=== PATIENT | female | born 1980 | race Caucasian/White ===

== ENCOUNTER 2016-11-23 14:01 | Emergency (ER) | payer OTHER ==
[2016-11-23 14:14] VITALS: RESP 18; TEMP 97.7
--- NOTE | 2016-11-23 15:45 | ED ---
General Adult HPI - General Chief complaint: Skin/Abscess/Foreign Body Stated complaint: insect bite on back Time Seen by Provider: 11/23/16 15:33 Source: patient, RN notes reviewed Mode of arrival: ambulatory Limitations: no limitations - History of Present Illness Initial comments: This is a 36 of female presents with an area of tenderness and to the back. Patient states she noticed this about 2 days ago at work. Patient denies any drainage from the area. Patient states the pain is worse when clothing rubs over the tender area. Patient denies any fever/chills, nausea/vomiting/ diarrhea. Patient denies any IV drug use, states she does smoke marijuana. Patient denies any recent shortness breath, chest pain, abdominal pain, back pain, numbness, tingling, hematuria, headache, or visual changes, or any other complaints. - Related Data Previous Rx's Medication Instructions Recorded Cephalexin [Keflex] 500 mg PO Q12HR 5 Days 11/23/16 Allergies Allergy/AdvReac Type Severity Reaction Status Date / Time kiwi Allergy Unknown Verified 11/23/16 14:14 Review of Systems ROS Statement: Those systems with pertinent positive or pertinent negative responses have been documented in the HPI. ROS Other: All systems not noted in ROS Statement are negative. Past Medical History Past Medical History: No Reported History History of Any Multi-Drug Resistant Organisms: None Reported Past Surgical History: Section, Orthopedic Surgery Past Psychological History: Anxiety Smoking Status: Current every day smoker Past Alcohol Use History: None Reported Past Drug Use History: Marijuana General Exam - General Exam Comments Initial Comments: General: The patient is awake and alert, in no distress, and does not appear acutely ill. Neck: The neck is supple, there is no tenderness or JVD. Cardiovascular: There is a regular rate and rhythm. No murmur, rub or gallop is appreciated. Respiratory: Lungs are clear to auscultation, respirations are non-labored, breath sounds are equal. No wheezes, stridor, rales, or rhonchi. Musculoskeletal: Full range of motion, strength 5/5 and Sensation intact. Radial pulses 2+ bilaterally. Neurological: A&O x 3. CN II-XII intact, There are no obvious motor or sensory deficits. Coordination appears grossly intact. Speech is normal. Skin: There is an approximately 1 cm area of erythema and very mild swelling to the mid back. There is no drainage from this area. No significant induration. The area is tender to palpation. Skin is warm and dry and no rashes are noted. Psychiatric: Normal mood and affect. Limitations: no limitations Course Vital Signs 11/23/16 14:09 Temperature 97.7 F Pulse Rate 74 Respiratory 18 Rate Blood Pressure 103/50 O2 Sat by Pulse 100 Oximetry Medical Decision Making - Medical Decision Making This is a 36-year-old female presents with an area of tenderness and erythema to the back. On physical exam There is an approximately 1 cm area of erythema and very mild swelling to the mid back. There is no drainage from this area. No significant induration. The area is tender to palpation. Skin is warm and dry and no rashes are noted. Discussed that patient was on a course of antibiotics. I discussed continued use of Aleve and Tylenol [id number] for pain. I discussed using warm compresses, hot showers and hot soaks. Discussed that this could be to start of an abscess, is no need for I&D today. I discussed return parameters. I discussed close follow-up with the patient's primary care physician. Patient will be referred to PCP today. I discussed the patient return to the [facility] for any worsening symptoms or for any further concerns. Patient was receptive to this plan and patient will be discharged home. Disposition Clinical Impression: Abscess Disposition: HOME SELF-CARE Condition: Good Instructions: Abscess (ED) Additional Instructions: Please finish entire course of antibiotics. Please use warm compresses to the area, hot showers or hot soaks. Continue Tylenol and/or Aleve [id number] as needed for pain. Please follow-up with her primary care physician in one to 2 days or return to the ED for any worsening symptoms or for any further concerns. Prescriptions: Cephalexin [Keflex] 500 mg PO Q12HR 5 Days Referrals: None,Stated [Primary Care Provider] - 1-2 days Faith Ledesma MD [STAFF PHYSICIAN] - 1-2 days Time of Disposition: 15:49
[2016-11-23 15:58] VITALS: BP 105/50; PULSE 72
== END 2016-11-23 15:56 | disposition home or self-care (01) ==
LOC: EC 14:01
DX: L02.212 Cutaneous abscess of back [any part, except buttock and flank] (principal); F17.200 Nicotine dependence, unspecified, uncomplicated
CPT/HCPCS: 99282

== ENCOUNTER 2017-01-06 08:37 | Emergency (ER) | payer OTHER ==
[2017-01-06] MEDS ORDERED: ASPIRIN 81 MG CHEW PO STA (09:41)
--- NOTE | 2017-01-06 09:45 | ED ---
Chest Pain HPI - General Chief Complaint: Chest Pain Stated Complaint: chest pain Time Seen by Provider: 01/06/17 09:26 Source: patient, RN notes reviewed Mode of arrival: wheelchair Limitations: no limitations - History of Present Illness Initial Comments: Patient is a 36-year-old female presents to the emergency room for evaluation of chest pain. Patient states pain began last night. Patient states the pain is on the left side of her chest. Patient states the pain feels like a tight/ burning pain. Patient states the pain is not going away. Patient states she took Aleve with no relief of symptoms. Patient denies shortness of breath. Patient states the pain is worse when she takes a deep breath. Patient does admit that she smokes a half pack per day. Patient denies any history of chest pain. Patient denies any significant past medical history. Patient denies any family history of cardiac issues. Patient denies headache or dizziness. Patient states the pain does make her nauseous. Patient also states that she's been very stressed with personal life. Patient is not sure if the chest pain is related to anxiety. Patient denies recent heavy lifting or trauma to her chest. Patient states the pain is not worse when pressing over the area. Patient denies fevers or chills. Patient denies headache. Patient denies abdominal pain. - Related Data Home Medications Medication Instructions Recorded Confirmed Pnv with Ca,No.72/Iron/FA 1 tab PO HS 01/06/17 01/06/17 [ Plus Tablet] Previous Rx's Medication Instructions Recorded Ibuprofen [Motrin] 600 mg PO Q6HR PRN #20 tab 01/06/17 Allergies Allergy/AdvReac Type Severity Reaction Status Date / Time kiwi Allergy Unknown Verified 01/06/17 09:44 Review of Systems ROS Statement: Those systems with pertinent positive or pertinent negative responses have been documented in the HPI. ROS Other: All systems not noted in ROS Statement are negative. EKG Findings - EKG Comments: EKG Findings:: Normal sinus rhythm, ventricular rate 59 bpm, [place] interval 134 ms , QRS duration 86 ms, QT/QTC 372/398 ms Past Medical History Past Medical History: No Reported History History of Any Multi-Drug Resistant Organisms: None Reported Past Surgical History: Section, Orthopedic Surgery Past Psychological History: Anxiety Smoking Status: Current every day smoker Past Alcohol Use History: None Reported Past Drug Use History: Marijuana General Exam - General Exam Comments Initial Comments: Sitting in exam room in no acute distress. Limitations: no limitations General appearance: alert, in no apparent distress Head exam: Present: atraumatic, normocephalic, normal inspection Eye exam: Present: normal appearance ENT exam: Present: normal exam Neck exam: Present: normal inspection Respiratory exam: Present: normal lung sounds bilaterally. Absent: respiratory distress Cardiovascular Exam: Present: regular rate, normal rhythm, normal heart sounds Extremities exam: Present: normal inspection Back exam: Present: normal inspection Neurological exam: Present: alert, oriented X3, CN II-XII intact, normal gait Psychiatric exam: Present: normal affect, normal mood Skin exam: Present: warm, dry, intact, normal color. Absent: rash Course Vital Signs 01/06/17 01/06/17 01/06/17 08:41 11:09 11:21 Temperature 97.8 F 98.8 F Pulse Rate 93 65 62 Respiratory 18 20 16 Rate Blood Pressure 123/56 101/55 104/64 O2 Sat by Pulse 100 99 100 Oximetry 01/06/17 12:35 Temperature 98.2 F Pulse Rate 80 Respiratory 18 Rate Blood Pressure 118/69 O2 Sat by Pulse 98 Oximetry Chest Pain MDM - MDM Patient is a 36 year old female presents to the emergency room for evaluation of chest pain. Labs show no concerning findings. EKG shows no concerning findings. Patient states pain is beginning to subside after medications given. Patient's symptoms also could be related to pleuritis or anxiety. Advised patient to return for any worsening symptoms. Advised patient to follow-up with her primary care provider for further evaluation. Patient states she understands everything that was discussed with her. Case discussed with Dr. Hoover. Disposition Clinical Impression: Chest pain Disposition: HOME SELF-CARE Condition: Good Instructions: Chest Pain (ED), Pleurisy (ED) Additional Instructions: Take ibuprofen as needed for pain. Please follow up with primary care provider in 1-2 days. If any new symptom arises or symptoms worsen, return to ER as soon as possible. Prescriptions: Ibuprofen [Motrin] 600 mg PO Q6HR PRN #20 tab PRN Reason: Pain Referrals: Kali Carter MD [REFERRING] - 1-2 days Time of Disposition: 11:43
[2017-01-06 10:01] LABS: Basophils # (A) 0.1 k/uL (0-0.2); Basophils % (A) 1 %; CH 32.1; CHCM 33.3; Eosinophils # (A) 0.2 k/uL (0-0.7); Eosinophils % (A) 3 %; HDW 2.29; HGB 13.1 gm/dL (11.4-16.0); Luc # (Auto) 0.17; Luc % (Auto) 2; Lymphocytes # (A) 1.8 k/uL (1.0-4.8); Lymphocytes % (A) 24 %; MCH 31.8 pg (25.0-35.0); MCHC 32.8 g/dL (31.0-37.0); MCV 96.9 fL (80.0-100.0); Mean Platelet Volume 8.5; Monocytes # (A) 0.4 k/uL (0-1.0); Monocytes % (A) 5 %; Neutrophils # (A) 4.7 k/uL (1.3-7.7); Neutrophils % (A) 64 %; RBC 4.13 m/uL (3.80-5.40); WBC 7.4 k/uL (3.8-10.6); WBC (Perox) 7.18
--- NOTE | 2017-01-06 10:09 | XR ---
EXAMINATION TYPE: XR chest 2V DATE OF EXAM: 01/06/2017 10:04 AM COMPARISON: NONE HISTORY: Chest pain TECHNIQUE: Frontal and lateral views of the chest are obtained. FINDINGS: There is no focal air space opacity, pleural effusion, or pneumothorax seen. The cardiac silhouette size is within normal limits. The patient is rotated. There are overlying cardiac leads. The osseous structures are intact. IMPRESSION: No acute cardiopulmonary process.
[2017-01-06 10:11] LABS: Glucose 73 mg/dL (74-99); Total Protein 5.4 g/dL (6.3-8.2)
[2017-01-06 10:12] LABS: ALT 30 U/L (9-52); AST 28 U/L (14-36); Alkaline Phosphatase 33 U/L (38-126); Anion Gap 7 mmol/L; Blood Urea Nitrogen 12 mg/dL (7-17); Calcium 8.8 mg/dL (8.4-10.2); Carbon Dioxide 25 mmol/L (22-30); Chloride 108 mmol/L (98-107); Magnesium 1.9 mg/dL (1.6-2.3); Non-African American GFR(MDRD) >60 (>60 ml/min/1.73 sqM); Potassium 4.1 mmol/L (3.5-5.1); Sodium 140 mmol/L (137-145); Total Bilirubin 0.3 mg/dL (0.2-1.3)
[2017-01-06 10:25] LABS: Partial Thromboplastin Time 21.2 sec (22.0-30.0); Prothrombin Time 10.3 sec (9.0-12.0)
[2017-01-06 10:27] LABS: Creatine Kinase 121 U/L (30-135)
[2017-01-06 10:39] LABS: Creatine Kinase MB 2.4 ng/mL (0.0-2.4); Troponin I <0.012 ng/mL (0.000-0.034)
[2017-01-06] MEDS ORDERED: KETOROLAC 30 MG/ML 1 ML VIAL IVP STA (10:54)
[2017-01-06] MEDS ORDERED: LORazepam 2 MG/ML SYRINGE IV STA (11:42)
[2017-01-06 12:36] VITALS: BP 118/69; PULSE 80; RESP 18; TEMP 98.2
== END 2017-01-06 12:35 | disposition home or self-care (01) ==
LOC: EC 08:37
DX: R07.9 Chest pain, unspecified (principal); R11.0 Nausea; F17.200 Nicotine dependence, unspecified, uncomplicated; Z79.899 Other long term (current) drug therapy; Z91.018 Allergy to other foods
CPT/HCPCS: 99285 ×2; 96374 ×2; 96375 ×2; 36415; 93005; 80053; 82550; 82553; 83735; 84484; 85025; 85610; 85730; 71020; J2060; J1885

== ENCOUNTER 2017-01-08 10:33 | Emergency (ER) | payer OTHER ==
[2017-01-08] MEDS ORDERED: HYDROcodone/APAP 5-325MG 1 EACH TAB PO STA (12:29)
--- NOTE | 2017-01-08 12:36 | ED ---
General Adult HPI - General Chief complaint: Shortness of Breath Stated complaint: ESE Time Seen by Provider: 01/08/17 12:19 Source: patient, RN notes reviewed, old records reviewed Mode of arrival: ambulatory Limitations: no limitations - History of Present Illness Initial comments: Chief complaint history of present illness this is a 36-year-old female with a chief complaint of anterior chest wall pain is worse with deep breathing palpation and twisting her upper torso. This been ongoing for several days. Patient was seen emergency room several days ago chest x-ray at that time was negative per Dr. Griggs. EKG was normal and I reviewed that. Patient denies any direct trauma to her chest. She is a smoker and again encouraged to stop. Patient reports that the pain is worse today than it was 2 days ago - Related Data Home Medications Medication Instructions Recorded Confirmed Ibuprofen [Motrin] 600 mg PO Q6HR PRN 01/08/17 01/08/17 Multivitamins, Thera [Multivitamin 1 tab PO DAILY 01/08/17 01/08/17 (formulary)] Previous Rx's Medication Instructions Recorded Hydrocodone/Acetaminophen [[place] 1 each PO Q6HR PRN #20 tab 01/08/17 5-325] methylPREDNISolone Dose Pack 4 mg PO DIRECTED #21 package 01/08/17 [Medrol Dose Pack] Allergies Allergy/AdvReac Type Severity Reaction Status Date / Time kiwi Allergy Unknown Verified 01/06/17 09:44 Review of Systems ROS Statement: Those systems with pertinent positive or pertinent negative responses have been documented in the HPI. Review of systems no visual acuity changes no headache no stiff neck she has anterior chest wall pain that increases with twisting turning bending deep breathing and palpation of anterior chest wall. No nausea no vomiting. No rash to her chest. Early shingles was discussed. No abdominal pain no back pain. No nausea vomiting no diarrhea. No neuro deficits. All systems are reviewed. Past medical problems significant for pleurisy diagnosed 3 days ago. Negative chest x-ray at that time a normal EKG at that time. The patient was placed on ibuprofen. Surgeries include left wrist, left knee and 2 C-sections. Patient wears no chance been now she had negative test 3 days ago. Plus she says she is not sexually active since since August. The patient's family history significant for mother had cervical cancer. Grandmother had diabetes. Patient has ALLERGIES to kiwi fruit. She does smoke strongly encouraged to stop. Denies alcohol use. ROS Other: All systems not noted in ROS Statement are negative. Past Medical History Past Medical History: No Reported History History of Any Multi-Drug Resistant Organisms: None Reported Past Surgical History: Section, Orthopedic Surgery Past Psychological History: Anxiety Smoking Status: Current every day smoker Past Alcohol Use History: None Reported Past Drug Use History: Marijuana General Exam - General Exam Comments Initial Comments: General: The patient is awake and alert, complaining of anterior chest wall pain, appears uncomfortable. Vital signs show temperature 98.0 pulse 86 story rate 20 pulse ox 99% in room air blood pressure 109/57 Eye: Pupils are equal, round and reactive to light, extra-ocular movements are intact ; there is normal conjunctiva bilaterally. No signs of icterus. Ears, nose, mouth and throat: There are moist mucous membranes and no oral lesions. Neck: The neck is supple, there is no tenderness . Cardiovascular: There is a regular rate and rhythm. No murmur, rub or gallop is appreciated. Respiratory: Lungs are clear to auscultation, respirations are non-labored, breath sounds are equal. No wheezes, stridor, rales, or rhonchi. Pain to the anterior chest wall left side right side over the sternum. Increases with deep breathing bending twisting turning and palpation. Chest pain can be slightly relieved with pressure on the anterior chest wall while breathing. Recently diagnosed with pleurisy. Gastrointestinal: Soft, non-distended, non-tender abdomen without masses or organomegaly noted. There is no rebound or guarding present. No CVA tenderness. Bowel sounds are unremarkable. Back: There is no tenderness to palpation in the midline. There is no obvious deformity. No rashes noted. Musculoskeletal: Normal ROM, no tenderness, There is no pedal edema. There is no calf tenderness or swelling. Sensation intact. Pulses equal bilaterally 2+. Neurological: No complaint of any weakness no evidence of any focal or lateralizing findings. Skin: Skin is warm and dry and no rashes or lesions are noted. Early shingles was discussed. Patient will watch for any changes. Psychiatric: Not complaining of any problems with anxiety or depression at this time. Does have a past history of anxiety no Limitations: no limitations Course Vital Signs 01/08/17 01/08/17 01/08/17 10:57 12:36 12:40 Temperature 98 F Pulse Rate 86 61 Respiratory 20 15 18 Rate Blood Pressure 109/57 103/68 O2 Sat by Pulse 99 100 Oximetry 01/08/17 14:45 Temperature 99.4 F Pulse Rate 68 Respiratory 14 Rate Blood Pressure 106/57 O2 Sat by Pulse 100 Oximetry EKG Findings - EKG Comments: EKG Findings:: EKG was done and reviewed at 1234 showing normal sinus rhythm no acute ST elevation no ectopy no ischemic changes. Rate 72. Was 154 QRS [address] Lozano this EKG was compared to one done several days ago on January 06 and he appeared to be the same. Medical Decision Making - Medical Decision Making Medical decision making; patient's white count is only 6.1 hemoglobin 13 hematocrit of 39 with a potassium 4.2. D-dimer normal at 0.44. The patient's BUN is 5 creatinine 0.74 the GFR greater than 60, glucose 80. Troponin less than 0.012. Chest x-ray was done and reviewed by radiologist's final impression is no acute cardiopulmonary process. As read by Dr. Griggs Patient reports feeling better after the IV Toradol. But still with a discomfort with palpation. She'll be told to continue with ibuprofen child be placed on a Medrol Dosepak and a short course of analgesics. Advised to follow- up with her family physician return emergency room as needed - Lab Data Result diagrams: 01/08/17 12:48 01/08/17 12:48 Lab Results 01/08/17 01/08/17 01/08/17 Range/Units 12:48 12:48 12:48 WBC 6.1 (3.8-10.6) k/uL RBC 4.03 (3.80-5.40) m/uL Hgb 13.3 (11.4-16.0) gm/dL Hct 39.2 (34.0-46.0) % MCV 97.1 (80.0-100.0) fL MCH 32.9 (25.0-35.0) pg MCHC 33.8 (31.0-37.0) g/dL RDW 12.8 (11.5-15.5) % Plt Count 169 (150-450) k/uL Neutrophils % 67 % Lymphocytes % 23 % Monocytes % 5 % Eosinophils % 3 % Basophils % 1 % Neutrophils # 4.1 (1.3-7.7) k/uL Lymphocytes # 1.4 (1.0-4.8) k/uL Monocytes # 0.3 (0-1.0) k/uL Eosinophils # 0.2 (0-0.7) k/uL Basophils # 0.0 (0-0.2) k/uL D-Dimer (<0.60) mg/L FEU Sodium 139 (137-145) mmol/L Potassium 4.2 (3.5-5.1) mmol/L Chloride 110 H (98-107) mmol/L Carbon Dioxide 24 (22-30) mmol/L Anion Gap 5 mmol/L BUN 5 L (7-17) mg/dL Creatinine 0.74 (0.52-1.04) mg/dL Est GFR (MDRD) Af Amer >60 (>60 ml/min/1.73 sqM) Est GFR (MDRD) Non-Af >60 (>60 ml/min/1.73 sqM) Glucose 80 (74-99) mg/dL Calcium 8.8 (8.4-10.2) mg/dL Total Bilirubin 0.5 (0.2-1.3) mg/dL AST 18 (14-36) U/L ALT 27 (9-52) U/L Alkaline Phosphatase 35 L (38-126) U/L Total Creatine Kinase 51 (30-135) U/L CK-MB (CK-2) 0.7 (0.0-2.4) ng/mL CK-MB (CK-2) Rel Index 1.4 Troponin I <0.012 (0.000-0.034) ng/mL Total Protein 5.9 L (6.3-8.2) g/dL Albumin 3.5 (3.5-5.0) g/dL 01/08/17 Range/Units 12:48 WBC (3.8-10.6) k/uL RBC (3.80-5.40) m/uL Hgb (11.4-16.0) gm/dL Hct (34.0-46.0) % MCV (80.0-100.0) fL MCH (25.0-35.0) pg MCHC (31.0-37.0) g/dL RDW (11.5-15.5) % Plt Count (150-450) k/uL Neutrophils % % Lymphocytes % % Monocytes % % Eosinophils % % Basophils % % Neutrophils # (1.3-7.7) k/uL Lymphocytes # (1.0-4.8) k/uL Monocytes # (0-1.0) k/uL Eosinophils # (0-0.7) k/uL Basophils # (0-0.2) k/uL D-Dimer 0.44 (<0.60) mg/L FEU Sodium (137-145) mmol/L Potassium (3.5-5.1) mmol/L Chloride (98-107) mmol/L Carbon Dioxide (22-30) mmol/L Anion Gap mmol/L BUN (7-17) mg/dL Creatinine (0.52-1.04) mg/dL Est GFR (MDRD) Af Amer (>60 ml/min/1.73 sqM) Est GFR (MDRD) Non-Af (>60 ml/min/1.73 sqM) Glucose (74-99) mg/dL Calcium (8.4-10.2) mg/dL Total Bilirubin (0.2-1.3) mg/dL AST (14-36) U/L ALT (9-52) U/L Alkaline Phosphatase (38-126) U/L Total Creatine Kinase (30-135) U/L CK-MB (CK-2) (0.0-2.4) ng/mL CK-MB (CK-2) Rel Index Troponin I (0.000-0.034) ng/mL Total Protein (6.3-8.2) g/dL Albumin (3.5-5.0) g/dL Disposition Clinical Impression: Costochondritis, acute, Pleurisy Disposition: HOME SELF-CARE Condition: Stable Instructions: Costochondritis (ED) Prescriptions: Hydrocodone/Acetaminophen [[place] 5-325] 1 each PO Q6HR PRN #20 tab PRN Reason: Pain methylPREDNISolone Dose Pack [Medrol Dose Pack] 4 mg PO DIRECTED #21 package Time of Disposition: 15:31
[2017-01-08] MEDS ORDERED: KETOROLAC 30 MG/ML 1 ML VIAL IVP STA (12:40)
[2017-01-08 13:07] LABS: Basophils % (A) 1 %; CH 32.4; CHCM 33.5; Eosinophils # (A) 0.2 k/uL (0-0.7); Eosinophils % (A) 3 %; HCT 39.2 % (34.0-46.0); HDW 2.25; HGB 13.3 gm/dL (11.4-16.0); Luc # (Auto) 0.14; Luc % (Auto) 2; Lymphocytes # (A) 1.4 k/uL (1.0-4.8); Lymphocytes % (A) 23 %; MCH 32.9 pg (25.0-35.0); MCHC 33.8 g/dL (31.0-37.0); MCV 97.1 fL (80.0-100.0); Mean Platelet Volume 8.2; Monocytes # (A) 0.3 k/uL (0-1.0); Monocytes % (A) 5 %; Neutrophils # (A) 4.1 k/uL (1.3-7.7); Neutrophils % (A) 67 %; RBC 4.03 m/uL (3.80-5.40); RDW 12.8 % (11.5-15.5); WBC 6.1 k/uL (3.8-10.6); WBC (Perox) 6.34
[2017-01-08 13:14] LABS: ALT 27 U/L (9-52); AST 18 U/L (14-36); Alkaline Phosphatase 35 U/L (38-126); Anion Gap 5 mmol/L; Blood Urea Nitrogen 5 mg/dL (7-17); Calcium 8.8 mg/dL (8.4-10.2); Carbon Dioxide 24 mmol/L (22-30); Chloride 110 mmol/L (98-107); Glucose 80 mg/dL (74-99); Non-African American GFR(MDRD) >60 (>60 ml/min/1.73 sqM); Potassium 4.2 mmol/L (3.5-5.1); Sodium 139 mmol/L (137-145); Total Bilirubin 0.5 mg/dL (0.2-1.3); Total Protein 5.9 g/dL (6.3-8.2)
[2017-01-08 13:38] LABS: Creatine Kinase 51 U/L (30-135)
[2017-01-08 13:50] LABS: Creatine Kinase MB 0.7 ng/mL (0.0-2.4); Troponin I <0.012 ng/mL (0.000-0.034)
--- NOTE | 2017-01-08 13:51 | XR ---
EXAMINATION TYPE: XR chest 2V DATE OF EXAM: 01/08/2017 1:36 PM COMPARISON: Prior chest x-ray 06 January 2017 HISTORY: Worsening chest pain TECHNIQUE: Frontal and lateral views of the chest are obtained. FINDINGS: There is no focal air space opacity, pleural effusion, or pneumothorax seen. The cardiac silhouette size is within normal limits. There are overlying cardiac leads. There is a mild spinal c urvature. The osseous structures are intact. IMPRESSION: No acute cardiopulmonary process.
[2017-01-08 15:47] VITALS: BP 97/64; PULSE 64; RESP 18; TEMP 99.3
== END 2017-01-08 15:47 | disposition home or self-care (01) ==
LOC: EC 10:33
DX: M94.0 Chondrocostal junction syndrome [Tietze] (principal); R09.1 Pleurisy; F17.200 Nicotine dependence, unspecified, uncomplicated; Z91.018 Allergy to other foods
CPT/HCPCS: 99285 ×2; 96374 ×2; 36415; 93005; 85379; 80053; 82550; 82553; 84484; 85025; 71020; J1885

== ENCOUNTER 2017-01-14 15:20 | Observation (INO) | payer OTHER ==
[2017-01-14] MEDS ORDERED: ASPIRIN 81 MG CHEW PO STA (15:54)
[2017-01-14] MEDS ORDERED: KETOROLAC 30 MG/ML 1 ML VIAL IVP STA (15:54)
[2017-01-14] MEDS ORDERED: IPRATROPIUM-ALBUTEROL 3 ML NEB INHALATION STA (15:57)
[2017-01-14] MEDS ORDERED: RX INFO: IV CONTRAST WAS GIVEN 1 EACH MISC MISCELLANE PRN (15:57)
--- NOTE | 2017-01-14 16:09 | ED ---
Chest Pain HPI - General Chief Complaint: Chest Pain Stated Complaint: Chest Pain Time Seen by Provider: 01/14/17 15:31 Source: patient Mode of arrival: wheelchair Limitations: no limitations - History of Present Illness Initial Comments: The patient is a 36-year-old female who presents to the ED with a chief complaint of chest pain. Patient states that the pain is located in the substernal region and radiates to the left upper chest. Patient states that the pain has been present over the course of the last week. She states that the pain is pleuritic in nature, worse when she takes a deep breath. Patient states the pain has grown worse over the course of the past week. She states that she becomes easily winded when ambulating secondary to her pain. She states that she's come to the ED several times over the course of this past week and has received x-rays and EKGs that were all read as normal. Reviewing the patient's chart, she also had a d-dimer that was noted to be normal. Patient was initially diagnosed with pleurisy and discharged with Motrin to use when necessary while at home. The patient was then reevaluated and discharged home with Irving and a Medrol Dosepak. The patient states that Irving takes the edge off the pain but that it has not resolved her discomfort. Patient denies any cardiac risk factors aside from cigarette smoking. Patient denies any family history of cardiac disease. Patient states that she takes no medications at home aside from a multivitamin with iron. HEART Score=2 (1 for suspicion, 0 for age, 1 for risk factors). Should be noted that the patient does state that she's lost her voice since that chest pain is grown worse. She denies any cough or nasal congestion. - Related Data Home Medications Medication Instructions Recorded Confirmed Ibuprofen [Motrin] 600 mg PO Q6HR PRN 01/08/17 01/14/17 Hydrocodone/Acetaminophen [Irving 1 tab PO Q6HR PRN 01/14/17 01/14/17 5-325] Multivitamin with Iron 1 tab PO DAILY 01/14/17 01/14/17 [Multivitamins with Iron] methylPREDNISolone Dose Pack See Taper PO DAILY 01/14/17 01/14/17 [Medrol Dose Pack] Allergies Allergy/AdvReac Type Severity Reaction Status Date / Time kiwi Allergy Anaphylaxis Verified 01/14/17 16:00 Review of Systems ROS Statement: Those systems with pertinent positive or pertinent negative responses have been documented in the HPI. ROS Other: All systems not noted in ROS Statement are negative. Constitutional: Denies: fever, chills, weakness Eyes: Denies: eye pain ENT: Denies: ear pain, throat pain Respiratory: Denies: cough, dyspnea, wheezes, hemoptysis Cardiovascular: Reports: chest pain, dyspnea on exertion. Denies: palpitations , orthopnea, edema, syncope, paroxysmal nocturnal dyspnea Endocrine: Reports: fatigue Gastrointestinal: Denies: abdominal pain, nausea, vomiting, diarrhea, constipation Genitourinary: Denies: urgency Musculoskeletal: Denies: back pain Skin: Denies: rash, lesions, change in color Neurological: Denies: headache, weakness, numbness Psychiatric: Denies: anxiety, depression EKG Findings - EKG Comments: EKG Findings:: EKG demonstrates normal sinus rhythm. There are no concerning ST or T-wave changes. The OR and QRS intervals are within normal limits. Past Medical History Past Medical History: No Reported History History of Any Multi-Drug Resistant Organisms: None Reported Past Surgical History: Section, Orthopedic Surgery Past Psychological History: Anxiety Smoking Status: Current every day smoker Past Alcohol Use History: None Reported Past Drug Use History: Marijuana General Exam Limitations: no limitations General appearance: alert, in no apparent distress Head exam: Present: atraumatic, normocephalic, normal inspection Eye exam: Present: normal appearance, PERRL, EOMI Pupils: Present: normal accommodation ENT exam: Present: normal exam, mucous membranes moist, other (slight erythema of the oropharynx. Hoarse voice noted) Neck exam: Present: normal inspection. Absent: tenderness, meningismus Respiratory exam: Present: normal lung sounds bilaterally, wheezes (trace wheezes bilaterally), other (patient seems to have difficulty taking deep breaths). Absent: respiratory distress, rales, rhonchi, stridor, chest wall tenderness Cardiovascular Exam: Present: regular rate, normal rhythm, other (Patient's pain is slightly reproducible on exam) GI/Abdominal exam: Present: soft. Absent: distended, tenderness, guarding, rebound Extremities exam: Present: normal inspection, normal capillary refill Neurological exam: Present: alert, altered, oriented X3 Psychiatric exam: Present: normal affect, normal mood Skin exam: Present: warm, dry, intact Course Vital Signs 01/14/17 01/14/17 01/14/17 15:25 16:28 16:37 Temperature 98.1 F Pulse Rate 89 84 86 Respiratory 18 Rate Blood Pressure 110/57 O2 Sat by Pulse 99 Oximetry Chest Pain MDM - MDM Patient is a 36-year-old female who presents to the ED with a chief complaint of chest pain. Patient states pain has been present over the course of the past week. Patient has been evaluated several times here in the ED. Initially diagnosed with pleurisy. Discharged home with NSAIDs for pain control; however , these were not effective. Patient returned to the ED and had additional evaluation including repeat chest x-ray and EKG. These were both noted to be normal. Patient a d-dimer that was negative at that point in time as well. As such, patient was discharged home with Irving and Medrol Dosepak. Patient states that she's been using these medications and that they take the edge off the pain that she is experiencing but do not resolve it. She notes that her pain has grown worse over the past week. Patient states that she smokes on a regular basis. She denies that she uses an inhaler. Denies cough, fevers, chills. However, does have a hoarse voice. Given that this is the patient's third visit to the ED, will check CT angiography of the chest to rule out possibility of PE or other intrathoracic pathology. EKG is normal sinus rhythm without any ischemic changes. Patient could be expressing pleurisy. Consider potential cardiac etiology as well, including pericarditis. 5:52 PM The patient states that her chest pain is not improved with Toradol. Updated patient that her CT PE study was normal. Troponin is within normal limits. EKG is NSR with no ST-T changes. 6:[address] Olga Hargrove, who accepts placement of patient into Observation to Dr. Tee. Disposition Clinical Impression: Chest pain Disposition: ADMITTED IP TO THIS [facility] Condition: Good Time of Disposition: 18:12 Decision to Admit Reason: Admit from EC Decision Date: 01/14/17 Decision Time: 18:12
[2017-01-14 16:11] LABS: Basophils % (A) 0 %; CHCM 33.6; Eosinophils % (A) 0 %; HCT 41.4 % (34.0-46.0); HDW 2.23; HGB 13.6 gm/dL (11.4-16.0); Luc # (Auto) 0.08; Luc % (Auto) 1; Lymphocytes # (A) 0.9 k/uL (1.0-4.8); Lymphocytes % (A) 12 %; MCH 31.6 pg (25.0-35.0); MCHC 32.9 g/dL (31.0-37.0); MCV 95.9 fL (80.0-100.0); Monocytes # (A) 0.2 k/uL (0-1.0); Monocytes % (A) 3 %; Neutrophils # (A) 6.1 k/uL (1.3-7.7); Neutrophils % (A) 84 %; RBC 4.31 m/uL (3.80-5.40); RDW 12.7 % (11.5-15.5); WBC 7.3 k/uL (3.8-10.6); WBC (Perox) 7.61
[2017-01-14 16:20] LABS: Partial Thromboplastin Time 24.1 sec (22.0-30.0); Prothrombin Time 10.3 sec (9.0-12.0)
[2017-01-14 16:21] LABS: Anion Gap 9 mmol/L; Blood Urea Nitrogen 12 mg/dL (7-17); Calcium 9.1 mg/dL (8.4-10.2); Carbon Dioxide 24 mmol/L (22-30); Chloride 107 mmol/L (98-107); Glucose 107 mg/dL (74-99); Magnesium 1.9 mg/dL (1.6-2.3); Non-African American GFR(MDRD) >60 (>60 ml/min/1.73 sqM); Potassium 4.1 mmol/L (3.5-5.1); Sodium 140 mmol/L (137-145)
--- NOTE | 2017-01-14 17:35 | CT ---
EXAMINATION TYPE: CT angio chest DATE OF EXAM: 01/14/2017 5:30 PM COMPARISON: NONE HISTORY: Mid Chest pain, Shortness of breath and hoarseness. CT DLP: 129.1 mGycm Automated exposure control for dose reduction was used. CONTRAST: CTA scan of the thorax is performed with IV Contrast, patient injected with 100 mL of Omnipaque 350, pulmonary embolism protocol. . FINDINGS: There are 3-D post processed images. The lungs are clear of infiltrate. There is no evidence of a pulmonary mass. Heart size is normal. Th ere is no pericardial effusion. There is no pleural effusion. I see no filling defects in the pulmona ry arteries. Thoracic aorta appears normal. There is no sign of aneurysm or dissection. There is no m ediastinal adenopathy. There are no hilar masses. The bony thorax appears intact. IMPRESSION: NORMAL CT ANGIOGRAM OF THE CHEST. NO EVIDENCE OF PULMONARY EMBOLISM.
[2017-01-14] MEDS ORDERED: ONDANSETRON 4 MG/2 ML VIAL IVP STA (17:51)
[2017-01-14] MEDS ORDERED: MORPHINE SULFATE 4 MG/ML SYRINGE IVP STA (17:51)
[2017-01-14] MEDS ORDERED: NALOXONE 0.4 MG/ML 1 ML VIAL IV PRN (18:13)
[2017-01-14] MEDS: MORPHINE SULFATE 4 MG/ML SYRINGE IV PRN (20:59)
[2017-01-14] MEDS: HYDROcodone/APAP 5-325MG 1 EACH TAB PO PRN (23:14)
[2017-01-15] MEDS: MORPHINE SULFATE 4 MG/ML SYRINGE IV PRN ×4 (00:47→20:08)
[2017-01-15] MEDS: HYDROcodone/APAP 5-325MG 1 EACH TAB PO PRN ×3 (03:43→13:47)
[2017-01-15 08:18] LABS: Basophils % (A) 0 %; CH 31.6; CHCM 32.8; Eosinophils # (A) 0.2 k/uL (0-0.7); Eosinophils % (A) 2 %; HCT 40.7 % (34.0-46.0); HDW 2.17; HGB 12.9 gm/dL (11.4-16.0); Luc # (Auto) 0.18; Luc % (Auto) 2; Lymphocytes # (A) 2.7 k/uL (1.0-4.8); Lymphocytes % (A) 35 %; MCH 30.6 pg (25.0-35.0); MCHC 31.6 g/dL (31.0-37.0); MCV 96.8 fL (80.0-100.0); Mean Platelet Volume 6.9; Monocytes # (A) 0.4 k/uL (0-1.0); Monocytes % (A) 6 %; Neutrophils # (A) 4.2 k/uL (1.3-7.7); Neutrophils % (A) 54 %; RBC 4.21 m/uL (3.80-5.40); RDW 12.7 % (11.5-15.5); WBC 7.7 k/uL (3.8-10.6); WBC (Perox) 7.93
[2017-01-15 08:39] LABS: Anion Gap 6 mmol/L; Blood Urea Nitrogen 13 mg/dL (7-17); Calcium 8.7 mg/dL (8.4-10.2); Carbon Dioxide 28 mmol/L (22-30); Chloride 106 mmol/L (98-107); Glucose 78 mg/dL (74-99); Magnesium 1.9 mg/dL (1.6-2.3); Non-African American GFR(MDRD) >60 (>60 ml/min/1.73 sqM); Potassium 4.3 mmol/L (3.5-5.1); Sodium 140 mmol/L (137-145)
--- NOTE | 2017-01-15 09:53 | P.CRDCN ---
History of Present Illness Consult date: 01/15/17 Chief complaint: Chest pain History of present illness: This is a pleasant 36-year-old female patient with history of smoking presented to the emergency room complaining of chest discomfort. The patient just was diagnosed with pleurisy and she was started on nonsteroidal anti-inflammatory medications recently. She came in back to the emergency room with a chest discomfort seems to be very pleuritic in nature. The EKG showed sinus rhythm without any significant ST or T-wave abnormalities. The cardiac enzymes were checked and came in to be unremarkable. The patient does not have any history of coronary artery disease or diabetes or hypertension or dyslipidemia. She does smoke about 3 cigarettes a day. She doesn't have any family history of premature coronary artery disease. As a mentioned earlier the patient was ruled out for acute coronary event. We get her up and around. Also I would obtain an echocardiogram was Doppler. If she is not having chest discomfort with exertion she might be able to be discharged home. Past Medical History Past Medical History: No Reported History Additional Past Medical History / Comment(s): MIGRAINES History of Any Multi-Drug Resistant Organisms: None Reported Past Surgical History: Section, Orthopedic Surgery Additional Past Surgical History / Comment(s): RT KNEE ARTHROSCOPY, 2 C- SECTIONS , LT WRIST CARPAL RUNNEL RELEASE Past Anesthesia/Blood Transfusion Reactions: Previous Problems w/ Anesthesia Additional Past Anesthesia/Blood Transfusion Reaction / Comment(s): "I NEEDED MORE SEDATION " Past Psychological History: Anxiety Additional Psychological History / Comment(s): PT LIVED IN [place] AND MOVED TO [place] IN SEP 2016 W/ MISTI. PT IS INDEPENDANT, WORKS FOR [employer] IN [place]. Smoking Status: Current every day smoker Past Alcohol Use History: None Reported Additional Past Alcohol Use History / Comment(s): STARTED SMOKING AT AGE 15 CURENTLY SMOKING 3-4 CIG PER DAY Past Drug Use History: Marijuana Additional Drug Use History / Comment(s): USED LAST THIS AM(01-14-17 - Past Family History Mother Family Medical History: Cancer Additional Family Medical History / Comment(s): OVARIAN CANCER GRANMOTHER HAD DM, HIGH BP. GRANDFATHER CANCER Father Family Medical History: No Reported History Additional Family Medical History / Comment(s): 5 RELATIVES ON FATHERS SIDE HAD LUPUS Brother(s) Family Medical History: Asthma Additional Family Medical History / Comment(s): MURMUR Medications and Allergies Home Medications Medication Instructions Recorded Confirmed Type Ibuprofen [Motrin] 600 mg PO Q6HR PRN 01/08/17 01/14/17 History Multivitamin with Iron 1 tab PO DAILY 01/14/17 01/14/17 History [Multivitamins with Iron] Allergies Allergy/AdvReac Type Severity Reaction Status Date / Time kiwi Allergy Anaphylaxis Verified 01/14/17 20:55 Physical Exam Vitals: Vital Signs Temp Pulse Pulse Resp BP BP Pulse Ox 01/15/17 07:41 98.2 F 64 15 87/48 98 01/15/17 04:00 98.0 F 59 L 16 82/51 97 01/14/17 23:45 16 01/14/17 23:44 98.1 F 64 16 99/55 97 01/14/17 20:00 16 01/14/17 19:44 98.4 F 66 16 104/53 98 01/14/17 18:32 70 16 114/65 100 Intake and Output 01/14/17 01/15/17 01/15/17 22:59 06:59 14:59 Other: # Voids 1 1 Weight 55.3 kg - Constitutional General appearance: no acute distress - Respiratory Respiratory: bilateral: CTA - Cardiovascular Rhythm: regular Heart sounds: normal: S1, S2 Results 01/15/17 07:52 01/15/17 07:50 Cardiac Enzymes 01/14/17 Range/Units 21:37 Troponin I <0.012 (0.000-0.034) ng/mL CBC 01/15/17 Range/Units 07:52 WBC 7.7 (3.8-10.6) k/uL RBC 4.21 (3.80-5.40) m/uL Hgb 12.9 (11.4-16.0) gm/dL Hct 40.7 (34.0-46.0) % Plt Count 200 (150-450) k/uL Comprehensive Metabolic Panel 01/15/17 Range/Units 07:50 Sodium 140 (137-145) mmol/L Potassium 4.3 (3.5-5.1) mmol/L Chloride 106 (98-107) mmol/L Carbon Dioxide 28 (22-30) mmol/L BUN 13 (7-17) mg/dL Creatinine 0.79 (0.52-1.04) mg/dL Glucose 78 (74-99) mg/dL Calcium 8.7 (8.4-10.2) mg/dL Current Medications Generic Name Dose Route Start Last Admin Trade Name Freq PRN Reason Stop Dose Admin Hydrocodone Bitart/Acetaminophen 1 each 01/14/17 18:13 01/15/17 08:54 [place] 5-325 PO 1 each Q4HR PRN Administration Moderate Pain Miscellaneous Information 1 each 01/14/17 15:57 01/14/17 17:30 Rx Info: Iv Contrast Was Given MISCELLANE 01/16/17 15:57 1 each DAILY PRN Administration Per Protocol Morphine Sulfate 4 mg 01/14/17 18:13 01/15/17 04:41 Morphine Sulfate (Inj) IV 4 mg Q4HR PRN Administration Severe Pain Naloxone HCl 0.2 mg 01/14/17 18:13 Narcan IV Q2M PRN Opioid Reversal Intake and Output 01/14/17 01/15/17 01/15/17 22:59 06:59 14:59 Other: # Voids 1 1 Weight 55.3 kg 01/15/17 07:52 01/15/17 07:50 Assessment and Plan Plan: Assessment Atypical chest discomfort Pleurisy Plan I will obtain an echocardiogram was Doppler Get the patient up and around and assess for chest pain Follow-up with the patient
[2017-01-15] MEDS: KETOROLAC 30 MG/ML 1 ML VIAL IVP PRN (17:39)
[2017-01-15] MEDS: MAG HYDROX/AL HYDROX/SIMETH 30 ML CUP PO SCH ×2 (17:40→20:08)
[2017-01-16] MEDS: MORPHINE SULFATE 4 MG/ML SYRINGE IV PRN ×3 (00:14→13:11)
[2017-01-16] MEDS: FAMOTIDINE 20 MG/2 ML VIAL IV SCH ×2 (00:17→08:09)
[2017-01-16] MEDS: KETOROLAC 30 MG/ML 1 ML VIAL IVP PRN ×2 (06:24→14:39)
--- NOTE | 2017-01-16 07:31 | ECHOF ---
Referral Reason:chest pain MEASUREMENTS -------- HEIGHT: 154.9 cm WEIGHT: 54.9 kg BP: 107/62 RVIDd: 2.8 cm (< 3.3) IVSd: 0.7 cm (0.6 - 1.1) LVIDd: 3.9 cm (3.9 - 5.3) LVPWd: 0.6 cm (0.6 - 1.1) IVSs: 0.9 cm LVIDs: 2.7 cm LVPWs: 1.4 cm LA Diam: 3.2 cm (2.7 - 3.8) LAESV Index (A-L): 15.21 ml/m Ao Diam: 2.4 cm (2.0 - 3.7) AV Cusp: 1.6 cm (1.5 - 2.6) LA Diam: 2.6 cm (2.7 - 3.8) MV EXCURSION: 14.881 mm (> 18.000) MV EF SLOPE: 151 mm/s (70 - 150) EPSS: 0.4 cm MV E Joni: 0.71 m/s MV DecT: 182 ms MV A Joni: 0.45 m/s MV E/A Ratio: 1.59 RAP: 5.00 mmHg RVSP: 25.82 mmHg FINDINGS -------- Sinus rhythm. This was a technically good study. Left ventricular wall thickness is normal. Overall left ventricular systolic function is normal with, an EF between 55 - 60 %. The right ventricle is normal in size. Normal LA size by volume 22+/-6 ml/m2. The right atrium is normal in size. The aortic valve is trileaflet and appears structurally normal. Mild mitral annular calcification present. There is trace mitral regurgitation. Mild tricuspid regurgitation present. Right ventricular systolic pressure is normal at < 35 mmHg. Trace/mild (physiologic) pulmonic regurgitation. The aortic root size is normal. Normal inferior vena cava with normal inspiratory collapse consistent with estimated right atrial pressure of 5 mmHg. There is no pericardial effusion. CONCLUSIONS -------- 1. Sinus rhythm. 2. There is trace mitral regurgitation. 3. Mild tricuspid regurgitation present. 4. Right ventricular systolic pressure is normal at < 35 mmHg. 5. Trace/mild (physiologic) pulmonic regurgitation. 6. The aortic root size is normal. 7. Normal inferior vena cava with normal inspiratory collapse consistent with estimated right atrial pressure of 5 mmHg. 8. There is no pericardial effusion. 9. This was a technically good study. 10. Left ventricular wall thickness is normal. 11. Overall left ventricular systolic function is normal with, an EF between 55 - 60 %. 12. The right ventricle is normal in size. 13. Normal LA size by volume 22+/-6 ml/m2. 14. The right atrium is normal in size. 15. The aortic valve is trileaflet and appears structurally normal. 16. Mild mitral annular calcification present. MEDICATION ADMINISTRATION PROFESSIONAL: Mike Browning RDCS
[2017-01-16] MEDS: MAG HYDROX/AL HYDROX/SIMETH 30 ML CUP PO SCH ×2 (08:09→13:11)
--- NOTE | 2017-01-16 10:40 | HP ---
DATE OF ADMISSION: 01/14/2017 CHIEF COMPLAINT: Chest pain. HISTORY OF PRESENT ILLNESS: Mariia Cobb is a 36-year-old female without significant past medical history except for anxiety, came to the hospital with complaints of chest pain, mainly on the left side, retrosternal, worsened with deep breathing and also pressure on the chest. The patient otherwise denied any fall. The patient initially presented to the ER on 01/08/2017. A CT angiogram of the chest was done and showed no pulmonary embolism. D-dimer was not elevated. The patient was initially seen in the ER and patient was given Motrin at home and discharged home with [place] and Medrol Dosepak. The patient otherwise was still having chest pain and requesting IV pain medications. The patient, however, denies any medical problems. The patient also states that she lost her voice since yesterday. Otherwise denied any cough or congestion. REVIEW OF SYSTEMS: CONSTITUTIONAL: No fever. No chills. RESPIRATORY: No cough or sputum production. The patient does have chest pain and short of breath with deep breathing. ABDOMEN: No nausea or vomiting, abdominal pain. GENITOURINARY: No complaints. PSYCHIATRIC: Anxious skin. SKIN: Negative. MUSCULOSKELETAL: Negative. All other 14-point review of systems negative except as above. PAST MEDICAL HISTORY: Anxiety. PAST SURGICAL HISTORY: , orthopedic surgery. SOCIAL HISTORY: The patient is a current every day smoker. Occasional marijuana use. Denied any drugs or IVDU. Denied any difficulty swallowing. HOME MEDICATIONS: 1. Motrin. 2. [place]. 3. Multivitamins. 4. Medrol Dosepak. ALLERGIES: KIWI. PHYSICAL EXAMINATION: A 36-year-old female lying in bed comfortably. Awake, alert, oriented, x3. Appears to be in mild distress due to pain. VITALS: Blood pressure is 196/64, pulse is 61, respirations 18, temperature afebrile, pulse ox 97% on room air. HEENT: Atraumatic, normocephalic. NECK: Supple, no JVD. CARDIOVASCULAR: No murmurs, no gallop. The patient does have chest wall pressure, worsened with deep palpation. LUNGS: Bilateral air entry is present. Diminished breath sounds basally. Nonlabored breathing. ABDOMEN: Soft, nontender, bowel sounds present. MAINTENANCE SUPERVISOR: Awake, alert, oriented x3. No focal deficits. EXTREMITIES: No edema. Pulses palpable bilaterally. PSYCHIATRIC: Cooperative. Anxious. LABORATORY DATA: WBC 7.7, hemoglobin 12.9, platelets 200, sodium 140, potassium 4.3, chloride 106, bicarbonate 28. BUN 13, creatinine 0.79, magnesium 1.9. Influenza A and B negative. Troponin x3 negative. NT-proBNP 186, d-dimer is 0.44. EKG normal sinus rhythm. IMPRESSION: Left-sided chest pain, mostly musculoskeletal and possible costochondritis. Rule out acute coronary syndrome. Continue with monitoring and ROSMERY. Will continue the pain management with [place] and Toradol 30 mg every 6 hourly 4 doses. Also start her on Maalox as well as Pepcid IV and follow closely. Further recommendations based on the clinical course. Cardiology is on board.
[2017-01-16] MEDS: HYDROcodone/APAP 5-325MG 1 EACH TAB PO PRN (11:01)
--- NOTE | 2017-01-16 13:11 | PN ---
This patient was admitted with chest pain. Patient's chest pain is atypical pain and kind of pleuritic pain. Echocardiogram was normal. Patient is reassured. She will be followed with Dr. Chung as an outpatient and will be evaluated with a stress test.
[2017-01-16 15:39] VITALS: BP 97/62; PULSE 66; RESP 14; TEMP 98.7
--- NOTE | 2017-01-18 23:07 | DS ---
DATE OF ADMISSION: 01/14/2017 DATE OF DISCHARGE: 01/16/2017 Cardiology consultation. DIAGNOSES: 1. Left-sided chest pain, most likely pleuritic in nature, musculoskeletal and possible costochondritis, improved with pain management. 2. CT angiogram is negative for pulmonary embolism. 3. Two-dimensional echocardiogram showed normal ejection fraction. 4. Anxiety. HOSPITAL COURSE: Ms. Cobb is a 36-year-old female without significant past medical history, admitted to the hospital with complaints of left-sided chest pain that worsened with deep breathing; pressure-like sensation in the chest. Patient initially came to the hospital on 01/08/2017. Patient's pain did not improve with pain medications. She came back to the hospital for evaluation. ( ) of the chest was done in ER that showed no pulmonary embolism. Patient was continued on pain management with Motrin and Toradol and [place] and followed closely. Patient was seen by Cardiology, who recommended no further workup. The echo showed normal ejection fraction, no wall motion abnormalities noted. Otherwise, patient was continued on pain management with improvement of her symptoms. Patient will be discharged home in stable condition and follow with her primary care physician. DISCHARGE PHYSICAL EXAMINATION: [id number]-old female lying in bed comfortably. Awake, alert and oriented x3. No apparent distress. VITAL SIGNS: Blood pressure is 97/62, pulse 66, respiration 14, temperature afebrile, pulse ox 96% on room air. Laboratory data reviewed. Discharge physical examination done. Discharge medications include: 1. Ibuprofen 600 mg p.o. q.6 hourly p.r.n. for pain. 2. Multivitamins 1 tablet p.o. daily. 3. [place] 5/325 one tablet q.4 hourly p.r.n. for pain. Patient will be discharged home in stable condition to follow up with Dr. Chung in one week. Activity as tolerated. Heart-healthy diet and regular diet.
== END 2017-01-16 17:44 | disposition home or self-care (01) ==
LOC: EC 15:20 → 3OBS 18:13
PROVIDERS: ADMIT Internal Medicine; ATTEND Internal Medicine
DX: R07.89 Other chest pain (principal); F41.9 Anxiety disorder, unspecified; R49.0 Dysphonia; R09.1 Pleurisy; F17.210 Nicotine dependence, cigarettes, uncomplicated; Z91.018 Allergy to other foods; Z82.5 Family history of asthma and other chronic lower respiratory diseases; Z79.899 Other long term (current) drug therapy
CPT/HCPCS: 36415; 94640; 93005; 93306; 83880; 80048 ×2; 83735 ×2; 84484; 85025 ×2; 85610; 85730; 81025; 87502; 71275; 96374; 96375 ×2; 99285; G0378 ×3; J2270 ×3; Q9967; J2405; J1885 ×3; 96376

== ENCOUNTER 2017-02-01 22:31 | Emergency (ER) | payer OTHER ==
[2017-02-01 22:35] VITALS: RESP 18
[2017-02-01] MEDS ORDERED: KETOROLAC 30 MG/ML 1 ML VIAL IM STA (23:42)
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
[2017-02-02 01:16] VITALS: BP 102/56; PULSE 80; TEMP 98.1
== END 2017-02-02 01:16 | disposition home or self-care (01) ==
LOC: EC 22:31
DX: M94.0 Chondrocostal junction syndrome [Tietze] (principal); F41.9 Anxiety disorder, unspecified; F17.210 Nicotine dependence, cigarettes, uncomplicated; Z79.899 Other long term (current) drug therapy; Z91.018 Allergy to other foods
CPT/HCPCS: 36415; 93005; 84484; 99285; 96372; J1885

== ENCOUNTER → 2017-02-09 | Outpatient (CLI) | payer OTHER ==
--- NOTE | 2017-02-09 11:40 | ECHOS ---
DATE OF SERVICE: 02/09/2017 AGE: 36Y SEX: F HT: 61" WT: 120 lbs. Protocol Juan F: X Others: Stress Echo Stage: 3 Dur. of Exercise: 9:00 *Heart Rate Blood Pressure *Rest: 66 Rest: 92/65 * *Max. Achieved: 158 Maximum BP: 133/64 85% PMHR: 156 100% PMHR: 184 *METS: 10.1 INDICATIONS: Chest pain. MEDICATIONS: - CLINICAL INFORMATION: History of chest pain, diabetes and family history of coronary artery disease, atypical chest pain history of smoking 2 packs of cigarettes a day for over 20 years. Patient is complaining of chest pain across the pericardium for 1 month. Resting ECG shows sinus rhythm, rate of 66 beats per minute, LA interval 0.16, QRS 0.08, normal ST-T waves. Utilizing a standard Juan F protocol, a symptom-limited treadmill test was performed. Patient exercised for total of 9 minutes, attained a peak heart rate of 158 beats per minute, which is approximately 86% predicted maximum heart rate without any chest pain or pressure, without any ST segment deviation but complained of chest which did not get any worse during the test. No ST segment deviations indicative of ischemia are noted. No cardiac arrhythmias are noted. Baseline images show normal thickening and contractibility. Postexercise image shows improved contractibility and thickening consistent with normal study. IMPRESSION: 1. Normal stress echocardiogram. 2. No ST segment deviations or cardiac arrhythmias. 3. Patient also average level of cardiopulmonary fitness as indicated by O2 max and METs. 4. Patient did obtain a peak level of activity equivalent to 10 METs.
== END | disposition home or self-care (01) ==
LOC: RADNMMAIN 08:46
PROVIDERS: ATTEND Internal Medicine Interventional Cardiology
DX: R07.9 Chest pain, unspecified (principal)
CPT/HCPCS: 93017; 93350

== ENCOUNTER → 2017-03-01 | Outpatient (CLI) | payer SELFPAY ==
--- NOTE | 2017-03-01 15:22 | US ---
EXAMINATION TYPE: US transvaginal DATE OF EXAM: 03/01/2017 3:03 PM COMPARISON: NONE CLINICAL HISTORY: N92.1 Metrorrhagia. Pt states abnormal, frequent menses x 4 months TECHNIQUE: Transvaginal (TV) Date of LMP: 02/22/2017 EXAM MEASUREMENTS: Uterus: 9.5 x 4.6 x 5.2 cm Endometrial Stripe: 0.8 cm Right Ovary: 4.0 x 4.1 x 3.6 cm Left Ovary: 4.0 x 2.8 x 2.2 cm 1. Uterus: Anteverted Heterogeneous 2. Endometrium: wnl 3. Right Ovary: Multiple follicles, complex lesion= 2.5 x 1.8 x 1.9 cm 4. Left Ovary: wnl, multiple follicles 5. Bilateral Adnexa: Small amount of free fluid left adnexa 6. Posterior cul-de-sac: Free fluid visualized IMPRESSION: 1. Complex right ovarian lesion may reflect hemorrhagic cyst or endometrioma. Lesion of other etiolog y not excluded. Follow-up in 6 weeks is advised. 2. Free fluid.
== END | disposition home or self-care (01) ==
LOC: RADUSWWP 14:39
PROVIDERS: ATTEND Obstetrics & Gynecology
DX: N83.9 Noninflammatory disorder of ovary, fallopian tube and broad ligament, unspecified (principal); N92.1 Excessive and frequent menstruation with irregular cycle
CPT/HCPCS: 76830